=== PATIENT | male | born 1970 | race Two or more races ===

== ENCOUNTER 2020-09-01 13:29 | Emergency (ER) | payer SELFPAY ==
[~2020-09-01] VITALS: Ht 172.7 cm; Wt 89.7 kg
[2020-09-01 13:31] VITALS: BP 158/84
--- NOTE | 2020-09-01 14:24 | RAD ---
Three-view left knee radiographs 09/01/2020 CLINICAL HISTORY: Left knee trauma. Pain. AP, oblique, lateral and sunrise digital radiographs of the left knee were obtained. Mild to moderate degenerative changes are seen involving all 3 compartments of left knee. No fracture or dislocation left knee is seen. IMPRESSION: No fracture or dislocation of the left knee is seen. Electronically signed by: Luis Andrade MD (09/01/2020 2:21 PM) [id number]
[2020-09-01] MEDS ORDERED: MELO15TA23 PO (14:29)
--- NOTE | 2020-09-01 14:29 | ED.ADGEN ---
Past Medical History Past Surgical History: No Surgical History Smoking Status: Never Smoker Alcohol Use: Occasionally General Adult EDM: Chief Complaint: LOWER EXT PAIN HPI: HPI: Patient is a 50 year old [f__sex] who presents with [] Review of Systems: Review of Systems: Complete ROS is negative unless otherwise documented in HPI Allergies: Allergies: Allergies Coded Allergies Type Severity Reaction Last Updated Verified No Known Drug Allergies 09/01/20 No Physical Exam: PE: General: Awake, alert, NAD. Well Nourished, well hydrated. Cooperative HEENT: Atraumatic, EOMI, PERRL, airway patent, moist oral mucosa Neck: Supple, trachea midline Respiratory: CTA bilaterally, normal effort, no wheezing/crackles CV: RRR, no murmur, cap refill <2 GI: Soft, nondistended, nontender, no masses MSK: Left knee: Tenderness and swelling along the medial aspect of the knee, patella in place, no joint effusion, normal range of motion Skin: Warm, dry, intact Neuro: A&O x3, speech NL, sensory and motor grossly intact, no focal deficits Psych: Normal affect, normal mood, not suicidal or homicidal Current Patient Data: Vital Signs: Vital Signs Date Time Temp Pulse Resp B/P (MAP) Pulse Ox O2 Delivery O2 Flow Rate FiO2 09/01/20 13:31 98.4 73 16 158/84 99 Room Air 98.4 EKG: EKG: [] Heart Score: C/O Chest Pain: N/A Risk Factors: Risk Factors: DM, Current or recent (<one month) smoker, HTN, HLP, family history of CAD, obesity. Risk Scores: Score 0 - 3: 2.5% MACE over next 6 weeks - Discharge Home Score 4 - 6: 20.3% MACE over next 6 weeks - Admit for Clinical Observation Score 7 - 10: 72.7% MACE over next 6 weeks - Early Invasive Strategies Radiology/Procedures: Radiology/Procedures: [] Course & Med Decision Making: Course & Med Decision Making Pertinent Labs and Imaging studies reviewed. (See chart for details) [] Dragon Disclaimer: Dragon Disclaimer: This electronic medical record was generated, in whole or in part, using a voice recognition dictation system. Departure Departure Impression: Primary Impression: Left knee sprain Disposition: HOME / SELF CARE / HOMELESS Condition: STABLE Referrals: NO PCP (PCP) SAM HORN DO Patient Instructions: Combined Knee Ligament Sprain-SportsMed, Knee Bracing Scripts Meloxicam (MELOXICAM) 15 Mg Tablet 1 TAB PO DAILY for 30 Days, #30 TAB 0 Refills Prov: CLINTON HODGES MD 09/01/20 CLINTON HODGES MD Sep 01, 2020 14:29
== END 2020-09-01 15:28 | disposition home or self-care (01) ==
LOC: ER 13:29
DX: S83.92XA Sprain of unspecified site of left knee, initial encounter (principal); W18.39XA Other fall on same level, initial encounter; Y93.89 Activity, other specified; Y92.89 Other specified places as the place of occurrence of the external cause; Y99.8 Other external cause status
CPT/HCPCS: 29505; 73564; 99284